=== PATIENT | female | born 1990 | race Caucasian/White ===

== ENCOUNTER → 2018-03-22 | Emergency (ER) | payer OTHER ==
[~2018-03-22] VITALS: Ht 160 cm; Wt 65.8 kg
[~2018-03-22] MED LIST: FLOVENT 110MCG7.9 GM IH; SINGULAIR5 MG PO; ZYRTEC5 M1 PO; [UNRECOGNIZED DRUG - OTHER]
== END | disposition home or self-care (01) ==
LOC: ER 19:47
DX: J06.9 Acute upper respiratory infection, unspecified (principal); J32.8 Other chronic sinusitis